=== PATIENT | male | born 1985 | race Caucasian/White ===

== ENCOUNTER 2020-04-27 22:29 | Emergency (ER) | payer SELFPAY ==
[~2020-04-27 22:29] MED LIST: ATARAX25 MG PO
[2020-04-27 23:52] LABS: EOSINOPHIL 3.7 % (0-5); HCT 43.7 % (42.0-52.0); HGB 14.2 g/dl (13.2-18.0); LYMPHOCYTE 34.8 % (15-48); MCH 31.7 pg (25.0-31.0); MCHC 32.5 g/dL (32.0-36.0); MCV 97.5 fL (78.0-100.0); MONOCYTE 11.6 % (0-12); MPV 10.5 fL (6.0-9.5); NEUTROPHIL 48.7 % (41-80); NRBC 0; PLT 420 K/uL (150-400); RBC 4.48 M/uL (4.70-6.00); RDW 14.3 % (11.5-14.0); WBC 13.1 K/uL (4.0-10.5)
[2020-04-28 00:10] LABS: ALBUMIN 3.4 g/dL (3.4-5.0); BILIRUBIN - TOTAL 0.1 mg/dL (0.2-1.0); BUN/CREAT RATIO (CALC) 17.9 RATIO; CREATININE 0.84 mg/dL (0.67-1.17); GLOBULIN (CALCULATION) 3.5 g/dL; POTASSIUM 4.3 mmol/L (3.5-5.1); TOTAL PROTEIN 6.9 g/dL (6.4-8.2)
[2020-04-28 01:12] LABS: AMPHETAMINES NEGATIVE (NEGATIVE); BARBITURATES POSITIVE (NEGATIVE); ECSTASY (MDMA) NEGATIVE (NEGATIVE); MARIJUANA (THC) POSITIVE (NEGATIVE); METHADONE NEGATIVE (NEGATIVE); OPIATES NEGATIVE (NEGATIVE); OXYCODONE NEGATIVE (NEGATIVE)
== END 2020-04-28 05:00 | disposition home or self-care (01) ==
LOC: FER 22:29
PROVIDERS: Emergency Medicine
DX: G40.909 Epilepsy, unspecified, not intractable, without status epilepticus (principal); R89.2 Abnormal level of other drugs, medicaments and biological substances in specimens from other organs, systems and tissues; F17.200 Nicotine dependence, unspecified, uncomplicated; Z87.820 Personal history of traumatic brain injury; Z91.14 Patient's other noncompliance with medication regimen
CPT/HCPCS: 36415; 80053; 80185; 80299; 80305; 85025; 93005; G0480; J1953

== ENCOUNTER 2020-04-30 22:08 | Emergency (ER) | payer SELFPAY | END 2020-04-30 23:51 | disposition home or self-care (01) | LOC: FER 22:08 | DX: T42.6X1A Poisoning by other antiepileptic and sedative-hypnotic drugs, accidental (unintentional), initial encounter (principal); T42.0X1A Poisoning by hydantoin derivatives, accidental (unintentional), initial encounter; G40.909 Epilepsy, unspecified, not intractable, without status epilepticus; Z87.820 Personal history of traumatic brain injury; Z87.828 Personal history of other (healed) physical injury and trauma; Z88.6 Allergy status to analgesic agent | CPT/HCPCS: 99284 ==

== ENCOUNTER 2020-06-22 22:06 | Emergency (ER) | payer SELFPAY | END 2020-06-23 00:22 | disposition home or self-care (01) | LOC: FER 22:06 | DX: G40.909 Epilepsy, unspecified, not intractable, without status epilepticus (principal); F17.210 Nicotine dependence, cigarettes, uncomplicated; Z79.899 Other long term (current) drug therapy | CPT/HCPCS: 80299; J1953 ==

== ENCOUNTER 2020-07-02 09:14 | Emergency (ER) | payer OTHER ==
[2020-07-02 10:46] LABS: BASOPHIL 0.6 % (0-2); EOSINOPHIL 0.8 % (0-5); HCT 42.1 % (42.0-52.0); HGB 14.2 g/dl (13.2-18.0); MCH 31.8 pg (25.0-31.0); MCHC 33.7 g/dL (32.0-36.0); MCV 94.4 fL (78.0-100.0); MONOCYTE 9.1 % (0-12); MPV 9.7 fL (6.0-9.5); NEUTROPHIL 69.1 % (41-80); NRBC 0; PLT 436 K/uL (150-400); RBC 4.46 M/uL (4.70-6.00); WBC 12.5 K/uL (4.0-10.5)
[2020-07-02 10:49] LABS: BILIRUBIN NEGATIVE (NEGATIVE); BLOOD NEGATIVE Ery/uL (NEGATIVE); CLARITY CLEAR (CLEAR); COLOR YELLOW (YELLOW); GLUCOSE (U) NORMAL (NORMAL); LEUKOCYTES NEGATIVE Leu/uL (NEGATIVE); NITRITE NEGATIVE (NEGATIVE); PROTEIN NEGATIVE (NEGATIVE); SPECIFIC GRAVITY <=1.005 (1.001-1.030); UROBILINOGEN 0.2 mg/dL (0.2-1.0); pH 6.5 (5.0-9.0)
[2020-07-02 10:52] LABS: BUN/CREAT RATIO (CALC) 23.1 RATIO; CREATININE 0.78 mg/dL (0.67-1.17); DILANTIN (PHENYTOIN) 2.9 ug/mL (10.0-20.0); POTASSIUM 4.2 mmol/L (3.5-5.1)
[2020-07-02 10:53] LABS: ECSTASY (MDMA) NEGATIVE (NEGATIVE); MARIJUANA (THC) POSITIVE (NEGATIVE); METHADONE NEGATIVE (NEGATIVE); OPIATES NEGATIVE (NEGATIVE)
[2020-07-02 10:54] LABS: AMPHETAMINES NEGATIVE (NEGATIVE); BARBITURATES NEGATIVE (NEGATIVE); OXYCODONE NEGATIVE (NEGATIVE)
== END 2020-07-02 11:15 | disposition home or self-care (01) ==
LOC: FER 09:14
PROVIDERS: Emergency Medicine
DX: G40.909 Epilepsy, unspecified, not intractable, without status epilepticus (principal); R89.2 Abnormal level of other drugs, medicaments and biological substances in specimens from other organs, systems and tissues
CPT/HCPCS: 36415; 80048; 80185; 80299; 80305; 81003; 85025; 99284

== ENCOUNTER 2020-07-21 15:07 | Emergency (ER) | payer OTHER ==
[2020-07-21] MEDS ORDERED: IBUPROFEN800 MG PO (19:12)
== END 2020-07-21 19:50 | disposition home or self-care (01) ==
LOC: FER 15:07
DX: S93.402A Sprain of unspecified ligament of left ankle, initial encounter (principal); F17.210 Nicotine dependence, cigarettes, uncomplicated; Z79.899 Other long term (current) drug therapy; X50.1XXA Overexertion from prolonged static or awkward postures, initial encounter; Y92.009 Unspecified place in unspecified non-institutional (private) residence as the place of occurrence of the external cause
CPT/HCPCS: 73610

== ENCOUNTER 2020-07-26 16:50 | Emergency (ER) | payer OTHER ==
[~2020-07-26 16:50] MED LIST changes: +IBUPROFEN800 MG PO
[2020-07-26 17:14] LABS: BASOPHIL 0.7 % (0-2); EOSINOPHIL 1.2 % (0-5); HCT 45.1 % (42.0-52.0); HGB 14.7 g/dl (13.2-18.0); LYMPHOCYTE 31.3 % (15-48); MCH 31.9 pg (25.0-31.0); MCHC 32.6 g/dL (32.0-36.0); MCV 97.8 fL (78.0-100.0); MONOCYTE 9.8 % (0-12); MPV 9.9 fL (6.0-9.5); NEUTROPHIL 56.8 % (41-80); NRBC 0; PLT 472 K/uL (150-400); RBC 4.61 M/uL (4.70-6.00); RDW 14.4 % (11.5-14.0); WBC 16.7 K/uL (4.0-10.5)
[2020-07-26 17:35] LABS: BUN/CREAT RATIO (CALC) 13.5 RATIO; CREATININE 0.89 mg/dL (0.67-1.17); DILANTIN (PHENYTOIN) 3.5 ug/mL (10.0-20.0); POTASSIUM 3.8 mmol/L (3.5-5.1)
[2020-07-26 18:18] LABS: LACTIC ACID 14.5 mmol/L (0.4-1.9)
== END 2020-07-26 21:55 | disposition home or self-care (01) ==
LOC: FER 16:50
PROVIDERS: Emergency Medicine
DX: G40.909 Epilepsy, unspecified, not intractable, without status epilepticus (principal); R79.89 Other specified abnormal findings of blood chemistry; F17.210 Nicotine dependence, cigarettes, uncomplicated; Z87.820 Personal history of traumatic brain injury
CPT/HCPCS: 36415; 70450; 71045; 80048; 80185; 80299; 83605; 85025; 87040; J7030; Q2009

== ENCOUNTER 2020-09-24 23:15 | Emergency (ER) | payer OTHER | END 2020-09-25 00:17 | disposition home or self-care (01) | LOC: FER 23:15 | DX: S06.9X1A Unspecified intracranial injury with loss of consciousness of 30 minutes or less, initial encounter (principal); G40.909 Epilepsy, unspecified, not intractable, without status epilepticus; F17.210 Nicotine dependence, cigarettes, uncomplicated; Z79.899 Other long term (current) drug therapy; Z91.14 Patient's other noncompliance with medication regimen; Z87.820 Personal history of traumatic brain injury; W19.XXXA Unspecified fall, initial encounter; Y92.410 Unspecified street and highway as the place of occurrence of the external cause | CPT/HCPCS: 70450; J1953 ==